=== PATIENT | female | born 1975 | race Two or more races ===

== ENCOUNTER 2016-12-10 07:57 | Day surgery (SDC) | payer BC ==
[~2016-12-10] VITALS: Ht 162.6 cm; Wt 79.8 kg
[2016-12-10] MEDS ORDERED: MIDAZOLAM HCL 5 MG/5 ML VIAL IVP ONE (10:18)
[2016-12-10] MEDS ORDERED: KETOROLAC TROMETHAMINE 30 MG VIAL IVP ONE (10:18)
[2016-12-10] MEDS ORDERED: fentaNYL CITRATE/PF 100 MCG/2 ML AMP IVP ONE (10:18)
[2016-12-10] MEDS ORDERED: LR 1,000 ML IV.SOLN IV ONE (10:18)
[2016-12-10] MEDS ORDERED: PROPOFOL 200MG/ 20ML VIAL (DIPRIVAN) IV ONE (10:18)
[2016-12-10] MEDS ORDERED: METOCLOPRAMIDE HCL 10 MG/2 ML VIAL IVP ONE (10:18)
[2016-12-10] MEDS ORDERED: SEVOFLURANE 15 MIN GAS INH ONE (10:18)
[2016-12-10] MEDS ORDERED: DEXAMETHASONE SOD PHOSPHATE 4 MG/ML VIAL IVP ONE (10:18)
[2016-12-10] MEDS ORDERED: NS IRRIG SOLN 1000 ML IR ONE (10:18)
[2016-12-10] MEDS ORDERED: LR 1,000 ML IV ONE (11:10)
[2016-12-10] MEDS ORDERED: ePHEDrine sulfate 50 MG/ML VIAL IVP PRN (11:15)
[2016-12-10] MEDS ORDERED: ONDANSETRON HCL 4 MG/2 ML VIAL IVP PRN ×3 (11:15→11:30)
[2016-12-10] MEDS ORDERED: DIPHENHYDRAMINE INJ 50 MG/ML VIAL IVP PRN (11:15)
[2016-12-10] MEDS ORDERED: NALBUPHINE HCL 10 MG/ML AMP IVP PRN (11:15)
[2016-12-10] MEDS ORDERED: NALOXONE HCL 0.4 MG/ML AMP (NARCAN) IVP PRN (11:15)
[2016-12-10] MEDS ORDERED: fentaNYL CITRATE/PF 100 MCG/2 ML AMP IVP PRN (11:15)
[2016-12-10] MEDS ORDERED: IBUPROFEN 600 MG TABLET PO PRN (11:30)
[2016-12-10] MEDS ORDERED: OXYCODONE/ACETAMINOPHEN 5-325 TABLET PO PRN ×2 (11:30)
[2016-12-10] MEDS ORDERED: PROMETHAZINE HCL 25 MG/ML AMP IM PRN ×2 (11:30)
[2016-12-10 13:25] VITALS: BP_SYST 105
== END 2016-12-10 13:05 | disposition home or self-care (01) ==
LOC: SMU 07:57 → SDS 07:57
PROVIDERS: ATTEND Obstetrics & Gynecology
DX: N84.0 Polyp of corpus uteri (principal); E78.5 Hyperlipidemia, unspecified; E03.9 Hypothyroidism, unspecified; E55.9 Vitamin D deficiency, unspecified; Z68.30 Body mass index [BMI] 30.0-30.9, adult; Z79.899 Other long term (current) drug therapy; Z83.3 Family history of diabetes mellitus; Z80.1 Family history of malignant neoplasm of trachea, bronchus and lung; Z80.3 Family history of malignant neoplasm of breast; D64.9 Anemia, unspecified
CPT/HCPCS: 36415; 58563; 86886; 86900; 86901; 88305; C1819; J1100; J1885; J2250; J2704; J2765; J3010; J7120